=== PATIENT | male | born 1965 | race Caucasian/White ===

== ENCOUNTER 2016-07-18 19:28 | Emergency (ER) | payer OTHER ==
[~2016-07-18] VITALS: Ht 172.7 cm; Wt 81.6 kg
[2016-07-18 19:31] VITALS: BP 165/100
[2016-07-18] MEDS ORDERED: DEXAMETHASONE SOD PHOSPHATE 10 MG/ML VIAL ONE (19:46)
[2016-07-18] MEDS ORDERED: KETOROLAC TROMETHAMINE INJ 30 MG/ML VIAL ONE (19:46)
[2016-07-18] MEDS ORDERED: KETOROLAC TROMETHAMINE INJ 60 MG/2 ML VIAL IM ONE (20:00)
[2016-07-18] MEDS ORDERED: DEXAMETHASONE SOD PHOSPHATE 4 MG/ML VIAL IM ONE (20:00)
== END 2016-07-18 20:04 | disposition home or self-care (01) ==
LOC: ER 19:29
DX: S39.012A Strain of muscle, fascia and tendon of lower back, initial encounter (principal); X58.XXXA Exposure to other specified factors, initial encounter; Y93.89 Activity, other specified; Y92.89 Other specified places as the place of occurrence of the external cause; Y99.8 Other external cause status
CPT/HCPCS: A4606; J1100; J1885; Z7610

== ENCOUNTER 2017-05-09 23:04 | Emergency (ER) | payer OTHER ==
[~2017-05-09] VITALS: Ht 172.7 cm; Wt 81.6 kg
[2017-05-09 23:20] VITALS: BP 137/95
[2017-05-09] MEDS ORDERED: TDAP [DIPH/PERTUSSIS/TET] 0.5 ML VIAL IM ONE (23:59)
[2017-05-09] MEDS ORDERED: IBUPROFEN 400 MG TABLET ONE (23:59)
[2017-05-10] MEDS ORDERED: TDAP [DIPH/PERTUSSIS/TET] 0.5 ML VIAL IM ONE
[2017-05-10] MEDS ORDERED: IBUPROFEN 400 MG TABLET PO ONE
== END 2017-05-10 00:14 | disposition home or self-care (01) ==
LOC: ER 23:06
DX: S00.211A Abrasion of right eyelid and periocular area, initial encounter (principal); S09.8XXA Other specified injuries of head, initial encounter; W21.07XA Struck by softball, initial encounter; Y93.64 Activity, baseball; Y92.89 Other specified places as the place of occurrence of the external cause; Y99.8 Other external cause status
CPT/HCPCS: 70486; 90471; 90715; 99284; A4606; A6402; Z7610

== ENCOUNTER 2017-07-08 18:54 | Emergency (ER) | payer OTHER ==
[~2017-07-08] VITALS: Ht 172.7 cm; Wt 81.6 kg
--- NOTE | 2017-07-08 19:27 | NUR ---
RECEIVED REPORT FOR TABITHA FROM NOEMY LUCERO
--- NOTE | 2017-07-08 19:28 | NUR ---
PT BB SELF FROM HOME WITH C/O SHARP PAIN TO LEFT CHEST AND LEFT RIB AREA. PT STATES PAIN BECOMES MORE INTENSE WHEN TAKING DEEP BREATHS. INTERMITTENT CP BEGAN IN THE MORNING BEFORE PT WENT TO WORK. PT STATES "I THOUGHT IT WOULD GO AWAY WHILE AT WORK". PT STATES PAIN LEVEL 4/10. PT IS AAOX4. SKIN WNL. NO DIAPHORESIS NOTED. RESP EVEN AND NONE LABORED. NO S/S OF ACUTE DISTRESS NOTED. PT GOWNED AND PLACED ON MONITOR AND POX. AWAITING MD FOR EVAL.
[2017-07-08 19:30] LABS: BASOPHILS # (AUTO) 0.2 /CMM (0.0-0.2); BASOPHILS % (AUTO) 2.5 % (0.0-2.0); EOSINOPHILS # (AUTO) 0.2 /CMM (0.0-0.7); EOSINOPHILS % (AUTO) 2.5 % (0.0-6.0); HEMATOCRIT 43 % (39-51); HEMOGLOBIN 14.8 g/dL (13.5-17.5); LYMPHOCYTES # (AUTO) 1.8 /CMM (0.8-4.8); LYMPHOCYTES % (AUTO) 27.2 % (20.0-44.0); MEAN CORPUSCULAR HEMOGLOBIN 31 PG (26.0-33.0); MEAN CORPUSCULAR HGB CONC 35 g/dl (31.0-36.0); MEAN CORPUSCULAR VOLUME 90 fL (80-96); MONOCYTES # (AUTO) 0.6 /CMM (0.1-1.30); MONOCYTES % (AUTO) 9.4 % (2.0-12.0); NEUTROPHILS # (AUTO) 3.8 /CMM (1.8-8.9); NEUTROPHILS % (AUTO) 58.4 % (43.0-81.0); PLATELET COUNT (AUTO) 210 /CMM (150-450); RDW COEFFICIENT OF VARIATION 12.6 (11.5-15.0); RED BLOOD CELL COUNT(AUTO) 4.76 MIL/uL (4.5-6.0); WHITE BLOOD COUNT (AUTO) 6.6 K/uL (4.3-11.0)
--- NOTE | 2017-07-08 19:31 | NUR ---
[employer]ELOPER BEDSIDE FOR CHEST X-RAY
[2017-07-08 19:58] LABS: CALCIUM, SERUM 8.9 mg/dL (8.5-10.1); CARBON DIOXIDE 30 mmol/L (21-32); CHLORIDE 105 mmol/L (98-107); CREATININE 1.1 mg/dL (0.6-1.3); GLUCOSE 86 mg/dL (74-106); SODIUM SERUM 141 mmol/L (136-145); UREA NITROGEN, BLOOD 20 mg/dL (7-18)
[2017-07-08 19:59] LABS: INR 0.87 (0.85-1.15)
[2017-07-08 20:07] LABS: TROPONIN I < 0.017 ng/mL (0.00-0.056)
--- NOTE | 2017-07-08 22:25 | NUR ---
Patient discharged to home in stable condition. Written and verbal after care instructions given. Patient verbalizes understanding of instruction.IV removed. Catheter intact and site benign. Pressure and 4x4 applied to site. No bleeding noted. PT AMBULATED WITH STEADY GAIT OUT OF ER ACCOMPANIED BY FRIEND.
[2017-07-08 22:26] VITALS: BP 127/91
== END 2017-07-08 22:28 | disposition home or self-care (01) ==
LOC: ER 19:00
DX: R07.89 Other chest pain (principal)
CPT/HCPCS: 36415; 71045-TC; 80048-TC; 84484-TC; 85025-TC; 85378-TC; 85730-TC; 93970-TC; A4606; Z7610

== ENCOUNTER 2018-05-14 12:55 | Emergency (ER) | payer OTHER ==
[~2018-05-14] VITALS: Ht 172.7 cm; Wt 82.6 kg
[2018-05-14 13:11] VITALS: BP 163/119
--- NOTE | 2018-05-14 13:37 | NUR ---
Patient discharged to home in stable condition. Written and verbal after care instructions given. Patient verbalizes understanding of instruction.
== END 2018-05-14 13:37 | disposition home or self-care (01) ==
LOC: ER 12:58
DX: H11.32 Conjunctival hemorrhage, left eye (principal)
CPT/HCPCS: A4606; Z7502; Z7610

== ENCOUNTER 2019-03-31 13:41 | Emergency (ER) | payer OTHER ==
[~2019-03-31] VITALS: Ht 172.7 cm; Wt 85.3 kg
[2019-03-31 13:50] VITALS: BP 90/51
== END 2019-03-31 14:54 | disposition home or self-care (01) ==
LOC: ER 13:41
DX: S83.8X2A Sprain of other specified parts of left knee, initial encounter (principal); W22.8XXA Striking against or struck by other objects, initial encounter; Y93.02 Activity, running; Y92.89 Other specified places as the place of occurrence of the external cause; Y99.8 Other external cause status
CPT/HCPCS: 73564-TC

== ENCOUNTER 2020-09-27 15:46 | Emergency (ER) | payer OTHER ==
[~2020-09-27] VITALS: Ht 172.7 cm; Wt 81.6 kg
--- NOTE | 2020-09-27 15:50 | NUR ---
AAOX3, CAME TO ER C/O WORSENING LEFT RIB CAGE PAIN FOR 2 DAYS, DENIES RECENT FALL OR INJURY. PATIENT STATES "WORSE WHEN I INHALE". RR IS EVEN AND UNLABORED WITH NAD NOTED. SKIN IS WARM AND DRY. AWAITING MD FOR EVAL.
[2020-09-27 17:05] LABS: BASOPHILS # (AUTO) 0.1 /CMM (0.0-0.2); EOSINOPHILS % (AUTO) 2.4 % (0.0-6.0); HEMATOCRIT 44 % (39-51); LYMPHOCYTES # (AUTO) 1.9 /CMM (0.8-4.8); MEAN CORPUSCULAR HGB CONC 34 g/dl (31.0-36.0); MEAN CORPUSCULAR VOLUME 94 fL (80-96); MONOCYTES # (AUTO) 0.5 /CMM (0.1-1.30); MONOCYTES % (AUTO) 9.1 % (2.0-12.0); NEUTROPHILS # (AUTO) 3.4 /CMM (1.8-8.9); NEUTROPHILS % (AUTO) 56.5 % (43.0-81.0); PLATELET COUNT (AUTO) 206 /CMM (150-450); RED BLOOD CELL COUNT(AUTO) 4.65 MIL/uL (4.5-6.0)
[2020-09-27 17:12] LABS: CREATININE 1.1 mg/dL (0.6-1.3); POTASSIUM 3.7 mmol/L (3.5-5.1)
[2020-09-27 17:18] LABS: ALBUMIN 3.9 g/dL (3.4-5.0); BILIRUBIN,DIRECT 0.1 mg/dL (0.0-0.2); BILIRUBIN,TOTAL 0.4 mg/dL (0.2-1.0); TOTAL PROTEIN, SERUM 7.4 g/dL (6.4-8.2)
[2020-09-27 18:03] LABS: BILIRUBIN,URINE NEGATIVE (NEGATIVE); COLOR,URINE YELLOW (YELLOW); LEUKOCYTE ESTERASE ,URINE NEGATIVE (NEGATIVE); NITRITE, URINE NEGATIVE (NEGATIVE); PH,URINE 5.5 (5.0-8.0); PROTEIN,URINE NEGATIVE (NEGATIVE); UGLUCOSE NEGATIVE (NEGATIVE); UROBILINOGEN,URINE 0.2 EU/dL (0.2)
[2020-09-27 18:10] VITALS: BP 135/79
--- NOTE | 2020-09-27 18:10 | NUR ---
Patient discharged to home in stable condition. Written and verbal after care instructions given. Patient verbalizes understanding of instruction.
[2020-09-27 18:21] LABS: WBC,URINE 0-2 /HPF (0-3)
[2020-09-27 18:22] LABS: BACTERIA,URINE None seen /HPF (None Seen); SQUAMOUS EPITHELIAL CELL,UR Few /HPF (None Seen); URINE AMORPHOUS URATE Few /HPF (None Seen)
== END 2020-09-27 18:10 | disposition home or self-care (01) ==
LOC: ER 15:58
DX: R10.9 Unspecified abdominal pain (principal); F10.10 Alcohol abuse, uncomplicated; Y90.9 Presence of alcohol in blood, level not specified
CPT/HCPCS: 36415; 80048-TC; 80076-TC; 81001; 83690-TC; 85025-TC